=== PATIENT | female | born 1940 | race Caucasian/White ===

== ENCOUNTER 2018-08-27 11:39 | Observation (INO) ==
[2018-08-27 12:17] LABS: Basophils % 0.7 %; Eosinophils # 0.2 K/mcL (0.0-0.6); Eosinophils % 3.3 %; Hematocrit 34.9 % (35.3-44.9); Hemoglobin 11.2 g/dL (11.5-15.4); Immature Granulocytes % 0.2 % (0-4); Lymphocytes # 1.8 K/mcL (0.6-4.6); Lymphocytes % 30.1 %; Mean Corpuscular HGB Conc 32.1 g/dL (31.6-35.5); Mean Corpuscular Hemoglobin 31.9 pg (28.0-33.3); Mean Corpuscular Volume 99.4 fL (83.0-100.0); Mean Platelet Volume 9.7 fL (9.4-12.4); Monocytes # 0.8 K/mcL (0.0-1.3); Monocytes % 12.6 %; Neutrophils # 3.2 K/mcL (1.6-8.9); Platelet Count 177 K/mcL (140-400); Red Blood Count 3.51 M/mcL (3.82-4.97); Red Cell Distribution Width 16.7 % (11.5-14.5); Segmented Neutrophils % 53.1 %
--- NOTE | 2018-08-27 12:21 | Emergency Department Note ---
Disposition Clinical Impression: Chest pain Qualifiers: Chest pain type: unspecified Qualified Code(s): R07.9 - Chest pain, unspecified Dyspnea Qualifiers: Dyspnea type: unspecified Qualified Code(s): R06.00 - Dyspnea, unspecified Atrial fibrillation Qualifiers: Atrial fibrillation type: chronic Qualified Code(s): I48.2 - Chronic atrial fi brillation Disposition: Admitted As Inpatient Forms: ED Satisfaction Letter Time of Disposition: 13:15 Chest Pain HPI - General Stated Complaint: Chest Pain Time Seen by Provider: 08/27/18 11:41 Source: patient Mode of arrival: ambulatory Limitations: no limitations Vital Signs Reviewed: Yes Nursing Notes Reviewed: Yes - History of Present Illness HPI Narrative: 77 yo female with past medical history of atrial fibrillation on Coumadin presents to the emergency department with worsening chest pressure and shortness of breath over the past 3 weeks. Patient states that chest pressure and shortness of breath occur when she is walking and working but are not present at rest. She had a heart catheterization many years ago which was clean and did not require stenting. 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 She does feel slightly nauseous at this time but has not thrown up and she thinks the nausea is secondary to her being hungry. She denies fevers, cough, abdominal pain. She saw her regular doctor today who told her to come to the emergency department for further evaluation of her worsening chest pressure. She currently denies having any chest pressure or shortness of breath. She says the pressure radiates into her back when she does have it. Severity scale (1-10): 0 - Related Data Home Medications Medication Instructions Recorded Confirmed Cyanocobalamin (Vitamin B-12) 1,000 mcg PO DAILY 11/27/15 02/13/17 [Vitamin B12] Potassium Chloride [K-Tab ER] 20 meq PO DAILY 11/27/15 02/13/17 Vit D3/Folic Acid/B2/B6/B12 1 tab PO DAILY 11/27/15 02/13/17 [Folgard Tablet] Warfarin [Coumadin] 5 mg PO 1800 11/27/15 02/13/17 Allopurinol [Zyloprim] 300 mg PO DAILY 02/07/16 02/13/17 Bumetanide [Bumex] 1 mg PO DAILY 02/07/16 02/13/17 Carvedilol [Coreg] 6.25 mg PO DAILY 02/07/16 02/13/17 Previous Rx's Medication Instructions Recorded Hydrocodone/Acetaminophen [[place] 1 tab PO Q6H #16 tab 11/27/15 5-325 Tablet] Acetaminophen [Tylenol] 500 mg PO Q6HR PRN #20 tablet 02/13/17 Allergies Allergy/AdvReac Type Severity Reaction Status Date / Time No Known Allergies Allergy Verified 02/13/17 14:58 All systems ED: reviewed and negative except as stated. Review of Systems: As Per HPI Constitutional: Denies: fever, weakness Cardiovascular: Reports: chest pain, dyspnea on exertion. Denies: palpitations, orthopnea, edema, syncope Respiratory: Denies: cough, dyspnea, wheezes Gastrointestinal: Reports: nausea. Denies: abdominal pain, vomiting Musculoskeletal: Reports: back pain. Denies: neck pain Integumentary: Denies: rash Neurological: Denies: headache Endocrine: Denies: fatigue Chest Pain PMH - Past Medical History Medical history: Reports: atrial fibrillation, cardiomyopathy Surgical history: Reports: hysterectomy, pacemaker/AICD Psychiatric history: Reports: no psych history BENEFITS DIRECTOR history: Reports: no BENEFITS DIRECTOR history - Social History Smoking Status: Never smoker Alcohol use: Reports: none Drug use: Reports: none Physical Exam - General Limitations: no limitations General appearance: alert, in no apparent distress - Head Head exam: atraumatic, normocephalic - Eye Eye exam: Present: normal appearance, EOMI - ENT ENT exam: mucous membranes dry - Neck Neck exam: Present: normal inspection. Absent: tenderness - Chest Chest inspection: Present: normal inspection. Absent: tenderness, rash - Respiratory Respiratory exam: Present: normal lung sounds bilaterally. Absent: wheezes - Cardiovascular Cardiovascular exam: Present: regular rate, normal rhythm - Abdominal Exam Abdominal exam: Present: soft, Non-Tender. Absent: distention, guarding, rebound, rigidity - Extremities Exam Extremities exam: Present: pedal edema (1+ pedal edema bilaterally) - Neurological Exam Neurological exam: Present: alert, oriented X3 - Psychiatric Psychiatric exam: Present: normal affect, normal mood - Skin Skin exam: Present: warm, dry, intact Course Vital Signs Temperature 98.2 F 08/27/18 11:46 Pulse Rate 62 08/27/18 11:46 Respiratory Rate 18 08/27/18 11:46 Blood Pressure 167/77 08/27/18 11:46 O2 Sat by Pulse Oximetry 99 08/27/18 11:46 Temperature 98.2 F 08/27/18 11:46 Pulse Rate 62 08/27/18 11:46 Respiratory Rate 18 08/27/18 11:46 Blood Pressure 167/77 08/27/18 11:46 O2 Sat by Pulse Oximetry 99 08/27/18 11:46 Oxygen Delivery Oxygen Delivery Room Air Chest Pain - MDM Narrative Medical decision making narrative: Patient presents with 3 weeks of worsening chest pressure and dyspnea with a ctivity concerning for worsening coronary artery disease versus new-onset heart failure. We will pursue a cardiac workup with EKG, chest x-ray, basic lab work and BNP. Patient is not actively expressing any chest pain therefore she will not be given nitroglycerin. 1305 - patient's EKG shows a paced rhythm. Her chest x-ray did not demonstrate any acute cardiopulmonary process. Troponin was negative but BNP was elevated at 303. Heart score is 4. Patient does not have a history of heart failure and her symptoms are concerning for new onset heart failure. Plan will be to admit to the hospitalist for further cardiac workup on this patient. Patient is agreeable with this plan of care. Patient has been accepted to the hospitalist at this time. - Medical Records Medical records reviewed: Yes I reviewed the patient's medical records. - Lab Data Lab results reviewed: Yes I reviewed the patient's lab results. Result diagrams: 08/27/18 11:55 08/27/18 11:55 Lab Results 08/27/18 08/27/18 08/27/18 Range/Units 11:55 11:55 11:55 WBC 6.0 (4.3-11.1) K/mcL RBC 3.51 L (3.82-4.97) M/mcL Hgb 11.2 L (11.5-15.4) g/dL Hct 34.9 L (35.3-44.9) % MCV 99.4 (83.0-100.0) fL MCH 31.9 (28.0-33.3) pg MCHC 32.1 (31.6-35.5) g/dL RDW 16.7 H (11.5-14.5) % Plt Count 177 (140-400) K/mcL MPV 9.7 (9.4-12.4) fL Immature Gran % 0.2 (0-4) % Seg Neutrophils % 53.1 % Lymphocytes % 30.1 % Monocytes % 12.6 % Eosinophils % 3.3 % Basophils % 0.7 % Neutrophils # 3.2 (1.6-8.9) K/mcL Lymphocytes # 1.8 (0.6-4.6) K/mcL Monocytes # 0.8 (0.0-1.3) K/mcL Eosinophils # 0.2 (0.0-0.6) K/mcL Basophils # 0.0 (0.0-0.2) K/mcL PT 31.3 H (9.4-12.1) Seconds INR 2.8 Sodium 139 (136-145) mEq/L Potassium 3.9 (3.5-5.1) mEq/L Chloride 104 (98-107) mEq/L Carbon Dioxide 28 (23-29) mEq/L BUN 26 H (8-23) mg/dL Creatinine 0.90 (0.60-1.20) mg/dL Est GFR ( Amer) > 60 (> 60) Est GFR (Non-Af Amer) > 60 (> 60) BUN/Creatinine Ratio 29 H (6-26) Glucose 111 H (70-105) mg/dL Calculated Osmolality 293 (280-300) Calcium 9.4 (8.6-10.3) mg/dL Magnesium 2.2 (1.6-2.6) mg/dL Troponin I < 0.03 (< 0.04) ng/mL B-Natriuretic Peptide (Less than 100) pg/mL 08/27/18 Range/Units 11:55 WBC (4.3-11.1) K/mcL RBC (3.82-4.97) M/mcL Hgb (11.5-15.4) g/dL Hct (35.3-44.9) % MCV (83.0-100.0) fL MCH (28.0-33.3) pg MCHC (31.6-35.5) g/dL RDW (11.5-14.5) % Plt Count (140-400) K/mcL MPV (9.4-12.4) fL Immature Gran % (0-4) % Seg Neutrophils % % Lymphocytes % % Monocytes % % Eosinophils % % Basophils % % Neutrophils # (1.6-8.9) K/mcL Lymphocytes # (0.6-4.6) K/mcL Monocytes # (0.0-1.3) K/mcL Eosinophils # (0.0-0.6) K/mcL Basophils # (0.0-0.2) K/mcL PT (9.4-12.1) Seconds INR Sodium (136-145) mEq/L Potassium (3.5-5.1) mEq/L Chloride (98-107) mEq/L Carbon Dioxide (23-29) mEq/L BUN (8-23) mg/dL Creatinine (0.60-1.20) mg/dL Est GFR ( Amer) (> 60) Est GFR (Non-Af Amer) (> 60) BUN/Creatinine Ratio (6-26) Glucose (70-105) mg/dL Calculated Osmolality (280-300) Calcium (8.6-10.3) mg/dL Magnesium (1.6-2.6) mg/dL Troponin I (< 0.04) ng/mL B-Natriuretic Peptide 303 H (Less than 100) pg/mL - Radiology Data Radiology results reviewed: Yes I reviewed the patient's radiology results. - EKG Data EKG attestation: Yes I reviewed and interpreted this EKG. EKG results narrative: EKG obtained at 11:48 on 08/27/2018 Heart rate 50 bpm, QRS duration 186, QTC 54, QTC 504 Paced rhythm without any ST segment elevations or depressions meeting sgarbossa criteria. Old EKG dated 02/07/2016 shows a sinus rhythm with first-degree AV block Heart Score - Score History: Moderately Suspicious EKG: Non Specific repolarisation Disturbance Age: Greater than 65 Risk Factors: No risk factors known Troponin: Less than normal limit HEART Score Total: 4
--- NOTE | 2018-08-27 12:23 | Emergency Department Note ---
Disposition Clinical Impression: Chest pain Qualifiers: Chest pain type: unspecified Qualified Code(s): R07.9 - Chest pain, unspecified Dyspnea Qualifiers: Dyspnea type: unspecified Qualified Code(s): R06.00 - Dyspnea, unspecified Atrial fibrillation Qualifiers: Atrial fibrillation type: chronic Qualified Code(s): I48.2 - Chronic atrial fi brillation Disposition: Admitted As Inpatient Condition: Fair Time of Disposition: 13:26 General Adult HPI - General Chief complaint: ED Chest Pain Stated complaint: Chest Pain Time Seen by Provider: 08/27/18 11:41 Source: patient Limitations: no limitations - History of Present Illness Pain Scale: 0 - Related Data Home Medications Medication Instructions Recorded Confirmed Cyanocobalamin (Vitamin B-12) 1,000 mcg PO DAILY 11/27/15 02/13/17 [Vitamin B12] Potassium Chloride [K-Tab ER] 20 meq PO DAILY 11/27/15 02/13/17 Vit D3/Folic Acid/B2/B6/B12 1 tab PO DAILY 11/27/15 02/13/17 [Folgard Tablet] Warfarin [Coumadin] 5 mg PO 1800 11/27/15 02/13/17 Allopurinol [Zyloprim] 300 mg PO DAILY 02/07/16 02/13/17 Bumetanide [Bumex] 1 mg PO DAILY 02/07/16 02/13/17 Carvedilol [Coreg] 6.25 mg PO DAILY 02/07/16 02/13/17 Previous Rx's Medication Instructions Recorded Hydrocodone/Acetaminophen [[place] 1 tab PO Q6H #16 tab 11/27/15 5-325 Tablet] Acetaminophen [Tylenol] 500 mg PO Q6HR PRN #20 tablet 02/13/17 Allergies Allergy/AdvReac Type Severity Reaction Status Date / Time No Known Allergies Allergy Verified 02/13/17 14:58 Past Medical History - Past Medical History Medical history: Reports: atrial fibrillation, cardiomyopathy Surgical history: Reports: hysterectomy, pacemaker/AICD Psychiatric history: Reports: no psych history 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 - Social History Smoking Status: Never smoker Smokeless Tobacco Status: No Alcohol use: Reports: none Drug use: Reports: none Physical Exam - General Limitations: no limitations General appearance: alert, in no apparent distress Course Vital Signs Temperature 98.2 F 08/27/18 11:46 Pulse Rate 62 08/27/18 11:46 Respiratory Rate 18 08/27/18 11:46 Blood Pressure 167/77 08/27/18 11:46 O2 Sat by Pulse Oximetry 99 08/27/18 11:46 Temperature 98.2 F 08/27/18 11:46 Pulse Rate 62 08/27/18 11:46 Respiratory Rate 18 08/27/18 11:46 Blood Pressure 167/77 08/27/18 11:46 O2 Sat by Pulse Oximetry 99 08/27/18 11:46 Oxygen Delivery Oxygen Delivery Room Air Medical Decision Making - Lab Data Result diagrams: 08/27/18 11:55 08/27/18 11:55 Lab Results 08/27/18 08/27/18 08/27/18 Range/Units 11:55 11:55 11:55 WBC 6.0 (4.3-11.1) K/mcL RBC 3.51 L (3.82-4.97) M/mcL Hgb 11.2 L (11.5-15.4) g/dL Hct 34.9 L (35.3-44.9) % MCV 99.4 (83.0-100.0) fL MCH 31.9 (28.0-33.3) pg MCHC 32.1 (31.6-35.5) g/dL RDW 16.7 H (11.5-14.5) % Plt Count 177 (140-400) K/mcL MPV 9.7 (9.4-12.4) fL Immature Gran % 0.2 (0-4) % Seg Neutrophils % 53.1 % Lymphocytes % 30.1 % Monocytes % 12.6 % Eosinophils % 3.3 % Basophils % 0.7 % Neutrophils # 3.2 (1.6-8.9) K/mcL Lymphocytes # 1.8 (0.6-4.6) K/mcL Monocytes # 0.8 (0.0-1.3) K/mcL Eosinophils # 0.2 (0.0-0.6) K/mcL Basophils # 0.0 (0.0-0.2) K/mcL PT 31.3 H (9.4-12.1) Seconds INR 2.8 Sodium 139 (136-145) mEq/L Potassium 3.9 (3.5-5.1) mEq/L Chloride 104 (98-107) mEq/L Carbon Dioxide 28 (23-29) mEq/L BUN 26 H (8-23) mg/dL Creatinine 0.90 (0.60-1.20) mg/dL Est GFR ( Amer) > 60 (> 60) Est GFR (Non-Af Amer) > 60 (> 60) BUN/Creatinine Ratio 29 H (6-26) Glucose 111 H (70-105) mg/dL Calculated Osmolality 293 (280-300) Calcium 9.4 (8.6-10.3) mg/dL Magnesium 2.2 (1.6-2.6) mg/dL Troponin I < 0.03 (< 0.04) ng/mL B-Natriuretic Peptide (Less than 100) pg/mL 08/27/18 Range/Units 11:55 WBC (4.3-11.1) K/mcL RBC (3.82-4.97) M/mcL Hgb (11.5-15.4) g/dL Hct (35.3-44.9) % MCV (83.0-100.0) fL MCH (28.0-33.3) pg MCHC (31.6-35.5) g/dL RDW (11.5-14.5) % Plt Count (140-400) K/mcL MPV (9.4-12.4) fL Immature Gran % (0-4) % Seg Neutrophils % % Lymphocytes % % Monocytes % % Eosinophils % % Basophils % % Neutrophils # (1.6-8.9) K/mcL Lymphocytes # (0.6-4.6) K/mcL Monocytes # (0.0-1.3) K/mcL Eosinophils # (0.0-0.6) K/mcL Basophils # (0.0-0.2) K/mcL PT (9.4-12.1) Seconds INR Sodium (136-145) mEq/L Potassium (3.5-5.1) mEq/L Chloride (98-107) mEq/L Carbon Dioxide (23-29) mEq/L BUN (8-23) mg/dL Creatinine (0.60-1.20) mg/dL Est GFR ( Amer) (> 60) Est GFR (Non-Af Amer) (> 60) BUN/Creatinine Ratio (6-26) Glucose (70-105) mg/dL Calculated Osmolality (280-300) Calcium (8.6-10.3) mg/dL Magnesium (1.6-2.6) mg/dL Troponin I (< 0.04) ng/mL B-Natriuretic Peptide 303 H (Less than 100) pg/mL Attestation Statement - Attestation Attestation: I examined this patient and my medical decision-making was reviewed with the Resident Physician. I agree with the documented findings, disposition and treatment plan as described except to the extent set forth below. Patient presents to the ED with a chief complaint of her chest not feeling right. Onset 3 weeks ago. Dyspnea on exertion. Saw her PCP today who recommended her to come to the ED. Patient does have a history of A. fib and has a pacemaker. No known history of CHF. On exam heart regular. Lungs clear. She does have 2-3+ pitting edema in her lower extremities. Plan. Cardiac workup. EKG reviewed with the resident. Paced rhythm. Patient with by mouth edema and elevation in her BNP. Admitted for further cardiac workup. Chest X-Ray 08/27/18 11:43 IMPRESSION: No acute process. Stable cardiomegaly. D/ / Toro Lora MD / Toro Lora MD Interpreting Provider: Toro Lora MD
[2018-08-27 12:25] LABS: INR 2.8; Prothrombin Time 31.3 Seconds (9.4-12.1)
[2018-08-27 12:37] LABS: BUN/Creatinine Ratio 29 (6-26); Blood Urea Nitrogen 26 mg/dL (8-23); Calcium 9.4 mg/dL (8.6-10.3); Carbon Dioxide 28 mEq/L (23-29); Chloride 104 mEq/L (98-107); Glucose 111 mg/dL (70-105); Magnesium 2.2 mg/dL (1.6-2.6); Osmolality,Calculated 293 (280-300); Potassium 3.9 mEq/L (3.5-5.1); Sodium 139 mEq/L (136-145); Troponin I < 0.03 ng/mL (< 0.04); eGFR For African Americans > 60 (> 60); eGFR For Non-African Americans > 60 (> 60)
[2018-08-27] MEDS ORDERED: Furosemide 40 MG/4 ML VIAL IVP ONE (13:28)
[2018-08-27] MEDS ORDERED: Naloxone 0.4 MG/ML INJ IVP PRN ×2 (13:42→13:44)
[2018-08-27] MEDS ORDERED: Ondansetron 4 MG/2 ML VIAL IVP PRN (13:44)
[2018-08-27] MEDS ORDERED: Aspirin 81 MG TAB.CHEW PO ONE (13:56)
--- NOTE | 2018-08-27 14:00 | Electrocardiograph Report ---
[address] [address] Test Date: 2018-08-27 Pat Name: Olga Chaparro Department: EXAM24 Room: 3B52 Gender: F Bank Runner: : 1940 Requested By: Lisa Lebron Order Number: [id number] Reading MD: Delta Stiles Measurements Intervals [place] Rate: 60 P: MA: QRS: -83 QRSD: 186 T: 101 QT: 504 QTc: 504 Interpretive Statements VENTRICULAR PACED RHYTHM Electronically Signed On 08-27-2018 13:59:06 EDT by Delta Stiles
--- NOTE | 2018-08-27 14:22 | Internal Med History&Physical ---
Date of Encounter: 08/27/18 Time of Encounter: 13:52 Internal Medicine - H&P: HPI Chief complaint: CP History of present illness: (Yesterday 77 years old white female with past medical history of atrial fibrillation on chronic anticoagulation most vomiting who presented to the ER with progressive worsening of midsternal chest pain associated with shortness of breath over the last 3 weeks. The pain is described as pressure-like in character with no radiation and it exacerbated by exertion and was no alleviating factor. The patient reported that she has history of heart catheterization that was negative. The patient denying palpitation orthopnea, paroxysmal nocturnal dyspnea, orthopnea, progressive worsening of lower extremity edema. The ER was concern that patient might have new onset heart failure, her BNP is not highly elevated and her chest x-ray did not demonstrate any acute abnormalities. The patient EKGs revealed based rhythm and her cardiac enzymes first set was was no significant abnormalities. The patient was treated with 1 dose of Lasix and was admitted for further evaluation and management. Past Med Surg Social Fam HX - Past Medical History Medical history: atrial fibrillation, cardiomyopathy Additional medical history: anemia Psychiatric history: no psych history - Past Surgical History Surgical History: hysterectomy, pacemaker/AICD Additional surgical history: thyroid nodules, pacemaker - Social History Smoking Status: Never smoker Smokeless Tobacco Status: No Alcohol use: none Drug use: none - Family History Mother Living Status: Age at : 96 Cause of : unknown Hx Family Cardiac Disorders: Yes Internal Medicine - H&P: Meds Warfarin [Coumadin] 7.5 mg PO 1800 11/27/15 [History] Allopurinol [Zyloprim] 300 mg PO DAILY 02/07/16 [History] Bumetanide [Bumex] 1 mg PO DAILY 02/07/16 [History] Ascorbic Acid [Vitamin C] 500 mg PO DAILY 08/28/18 [History] Carvedilol 3.125 mg PO BID 08/28/18 [History] Cholecalciferol (Vitamin D3) [Vitamin D3] 1,000 units PO DAILY 08/28/18 [History] Ferrous Sulfate [Iron] 325 mg PO DAILY 08/28/18 [History] Multivit-Min/Iron/Folic/Lutein [Multivitamin Women 50 Plus Tab] 1 tab PO DAILY 08/28/18 [History] Potassium 99 mg PO BID 08/28/18 [History] Ubidecarenone/Vit E Acetate [Co Q-10 100 mg Softgel] 100 mg PO DAILY 08/28/18 [History] Allergy/AdvReac Type Severity Reaction Status Date / Time No Known Allergies Allergy Verified 08/28/18 18:47 All Systems PM: A 10-system review of systems was performed and is negative for pertinent findings except as documented above in the HPI. - Constitutional Vitals: Temp Pulse Resp BP Pulse Ox 98.2 F 62 16 134/71 99 08/27/18 11:46 08/27/18 11:46 08/27/18 13:39 08/27/18 13:39 08/27/18 11:46 General appearance: Present: A&O X 3 Exam: ` - Head Head exam: Present: atraumatic, normocephalic - Neck Neck exam general surgery: Present: supple, trachea midline. Absent: lymphadenopathy - Respiratory Respiratory exam: Present: CTAB. Absent: accessory muscle use, rales, rhonchi, wheezes - Cardiovascular Cardiovascular exam: Present: RRR, +S1, +S2. Absent: diastolic murmur, gallop, rubs, systolic murmur - GI/Abdominal GI/Abdominal exam: Present: normal bowel sounds, soft, no peritoneal signs. Absent: distended, tenderness - Extremities Exam Extremities exam: Present: warm, radial pulses palpable and symmetrical. Absent: calf tenderness, cyanotic, pedal edema Internal Med - H&P Results - Labs CBC & Chem 7: 08/29/18 00:24 08/29/18 00:24 Labs: Short CBC 08/27/18 Range/Units 11:55 WBC 6.0 (4.3-11.1) K/mcL Hgb 11.2 L (11.5-15.4) g/dL Hct 34.9 L (35.3-44.9) % Plt Count 177 (140-400) K/mcL Neutrophils # 3.2 (1.6-8.9) K/mcL BMP 08/27/18 11:55 Sodium 139 Potassium 3.9 Chloride 104 Carbon Dioxide 28 BUN 26 H Creatinine 0.90 Glucose 111 H Calcium 9.4 Cardiac Enzymes 08/27/18 Range/Units 11:55 Troponin I < 0.03 (< 0.04) ng/mL - Impressions ITS Impressions Chest X-Ray 08/27/18 11:43 IMPRESSION: No acute process. Stable cardiomegaly. D/ / Toro Lora MD / Toro Lora MD Interpreting Provider: Toro Lora MD - Assessment and Plan (1) Chest pain Current Visit: Yes Status: Suspected Assessment and plan: ASSESSMENT: - Chest pain R/o CAD - The patient reported that she has history of heart catheterization that was negative. PLAN: - cardiac enzymes x 2 q 8 hr - EKG now and in AM - ASA - O2 by NC to keep SpO2 greater than 92% - UA - CBCD, BMP in AM - Fasting lipids - Tylenol 650 mg PO q 4-6 hr PRN headache - 2D Echo Qualifiers: Chest pain type: chest pain due to myocardial ischemia Ischemic chest pain type: stable angina pectoris Qualified Code(s): I20.8 - Other forms of angina pectoris (2) Afib Current Visit: Yes Status: Chronic Assessment and plan: the patient rate is controlled, will continue anticoagulation with Coumadin Qualifiers: Atrial fibrillation type: chronic Qualified Code(s): I48.2 - Chronic atrial fibrillation (3) CHF (congestive heart failure) Current Visit: Yes Status: Acute Assessment and plan: There is no clinical evidence of acute exacerbation both an x-ray and physical exam, we will continue home diuretic regimen Qualifiers: Heart failure type: diastolic Heart failure chronicity: chronic Qualified Code(s): I50.32 - Chronic diastolic (congestive) heart failure (4) Anemia Current Visit: Yes Status: Acute Assessment and plan: Macrocytic anemia, will obtain vit B12 level and folic acid level Qualifiers: Anemia type: iron deficiency Iron deficiency anemia type: other iron deficiency Qualified Code(s): D50.8 - Other iron deficiency anemias (5) Morbid obesity with BMI of 45.0-49.9, adult Current Visit: Yes Status: Chronic - Time Spent With Patient Total time spent is greater than 50% in coordination of care (as documented) at patient's floor/unit and/or counseling patient:
[2018-08-27 22:49] LABS: INR 2.9; Prothrombin Time 32.9 Seconds (9.4-12.1)
[2018-08-28 02:24] LABS: Basophils % 0.6 %; Eosinophils # 0.2 K/mcL (0.0-0.6); Eosinophils % 3.9 %; Hematocrit 32.7 % (35.3-44.9); Hemoglobin 10.4 g/dL (11.5-15.4); Immature Granulocytes % 0.2 % (0-4); Lymphocytes # 1.9 K/mcL (0.6-4.6); Lymphocytes % 34.6 %; Mean Corpuscular HGB Conc 31.8 g/dL (31.6-35.5); Mean Corpuscular Hemoglobin 32.3 pg (28.0-33.3); Mean Corpuscular Volume 101.6 fL (83.0-100.0); Mean Platelet Volume 9.8 fL (9.4-12.4); Monocytes # 0.7 K/mcL (0.0-1.3); Monocytes % 12.5 %; Neutrophils # 2.6 K/mcL (1.6-8.9); Platelet Count 156 K/mcL (140-400); Red Blood Count 3.22 M/mcL (3.82-4.97); Red Cell Distribution Width 16.6 % (11.5-14.5); Segmented Neutrophils % 48.2 %; White Blood Count 5.4 K/mcL (4.3-11.1)
[2018-08-28 02:36] LABS: INR 2.9; Prothrombin Time 33.5 Seconds (9.4-12.1)
[2018-08-28 02:39] LABS: Activated Partial Thrombo Time 47.7 Seconds (26.0-36.0)
[2018-08-28 02:45] LABS: Alanine Aminotransferase 12 Units/L (7-52); Albumin 3.6 g/dL (3.5-5.7); Albumin/Globulin Ratio 0.9 (1.1-2.2); Alkaline Phosphatase 53 Units/L (34-104); Aspartate Amino Transferase 21 Units/L (13-39); BUN/Creatinine Ratio 28 (6-26); Bilirubin,Total 0.6 mg/dL (0.3-1.0); Blood Urea Nitrogen 25 mg/dL (8-23); Calcium 9.3 mg/dL (8.6-10.3); Carbon Dioxide 29 mEq/L (23-29); Chloride 103 mEq/L (98-107); Chol/HDL Ratio 5.4 (0-4.9); Cholesterol 163 mg/dL (< 200); Globulin 3.9 g/dL (2.4-3.5); Glucose 89 mg/dL (70-105); HDL Cholesterol 30 mg/dL (40-59); LDL Cholesterol,Calculated 111 mg/dL (0-99); Osmolality,Calculated 294 (280-300); Phosphorous 3.8 mg/dL (2.7-4.5); Potassium 3.6 mEq/L (3.5-5.1); Sodium 140 mEq/L (136-145); Total Protein 7.5 g/dL (6.4-8.9); Triglycerides 112 mg/dL (< 150); eGFR For African Americans > 60 (> 60); eGFR For Non-African Americans > 60 (> 60)
[2018-08-28] MEDS ORDERED: Regadenoson 0.4 MG/5 ML SYRINGE IVP ONE (07:34)
[2018-08-28] MEDS: Bumetanide 1 MG TABLET PO SCH (09:42)
[2018-08-28] MEDS: Acetaminophen 325 MG TABLET PO PRN ×2 (09:42→20:49)
[2018-08-28] MEDS: FOLIC ACID PO SCH (09:43)
[2018-08-28] MEDS: B12 PO SCH (09:43)
[2018-08-28] MEDS: Aspirin 81 MG TAB.CHEW PO SCH (09:43)
[2018-08-28] MEDS: Cyanocobalamin (B-12) 1,000 MCG TABLET PO SCH (09:43)
[2018-08-28] MEDS: B6 PO SCH (09:43)
[2018-08-28] MEDS: VIT D3 PO SCH (09:43)
[2018-08-28] MEDS: B2 PO SCH (09:43)
[2018-08-28] MEDS ORDERED: *HR* Warfarin 7.5 MG TABLET PO ONE (18:00)
[2018-08-28] MEDS ORDERED: Warfarin perPT PO PRN (18:00)
--- NOTE | 2018-08-28 18:10 | Internal Med Progress Note ---
Hospitalist Progress Note - Encounter Date of Encounter: 08/28/18 Time of Encounter: 12:30 - Subjective Interval History: Ms Chaparro is currently in observation for chest pain. Her stress test is 2 day. She remains moderate risk. Ms Chaparro is feeling OK. No further chest discomfort. Part 2 of stress tomorrow. Wants her iron pill. - Exam Vitals: Temp Pulse Resp BP Pulse Ox 98.0 F 60 15 131/73 92 08/28/18 15:25 08/28/18 15:25 08/28/18 15:25 08/28/18 15:25 08/28/18 15:25 Exam: Gen: Alert. Comfortable Head: Normocephalic EENT: Mucus membranes dry Neck: Supple Heart irreg and not tachy Lungs clear bilaterally Abd soft and nontender No edema Neuro non focal Skin no rash - Assessment and Plan (1) Afib Current Visit: Yes Status: Chronic Assessment and Plan: Rate controlled at this time. Continue coumadin. (2) Chest pain Current Visit: Yes Status: Suspected Assessment and Plan: Pt is having stress test - 2 part. Further evaluation based on results. (3) CHF (congestive heart failure) Current Visit: Yes Status: Acute Assessment and Plan: Not in acute exacerbation. (4) Anemia Current Visit: Yes Status: Acute Assessment and Plan: Continue supplement. (5) Morbid obesity with BMI of 45.0-49.9, adult Current Visit: Yes Status: Chronic Assessment and Plan: Chronic issue - Time Spent with Patient Total time spent is greater than 50% in coordination of care (as documented) at patient's floor/unit and/or counseling patient: Internal Medicine: Result - Labs CBC & Chem 7: 08/28/18 01:14 08/28/18 01:14 Labs: Short CBC 08/28/18 Range/Units 01:14 WBC 5.4 (4.3-11.1) K/mcL Hgb 10.4 L (11.5-15.4) g/dL Hct 32.7 L (35.3-44.9) % Plt Count 156 (140-400) K/mcL Neutrophils # 2.6 (1.6-8.9) K/mcL BMP 08/28/18 01:14 Sodium 140 Potassium 3.6 Chloride 103 Carbon Dioxide 29 BUN 25 H Creatinine 0.90 Glucose 89 Calcium 9.3 Cardiac Enzymes 08/27/18 08/28/18 Range/Units 19:49 01:14 Troponin I < 0.03 0.03 (< 0.04) ng/mL Liver Function 08/28/18 Range/Units 01:14 Total Bilirubin 0.6 (0.3-1.0) mg/dL AST 21 (13-39) Units/L ALT 12 (7-52) Units/L Alkaline Phosphatase 53 (34-104) Units/L Albumin 3.6 (3.5-5.7) g/dL - ABG Interpretation ABG results: PT/INR, D-dimer PT 33.5 Seconds (9.4-12.1) H 08/28/18 01:14 - Impressions Impressions Echocardiogram 08/27/18 13:40 Impressions: LVEF 60-65%. Normal LV chamber size and function. Mild concentric left ventricular hypertrophy. Mild left ventricular diastolic dysfunction. Atypical septal motion consistent with paced rhythm. Right ventricle was not well evaluated. In the subcostal view, function is grossly normal. Mild tricuspid regurgitation. Mild pulmonary hypertension. The IVC is dilated. < 50% respiratory change. A device lead was visualized in the right atrium and right ventricle. Left Ventricular Wall Motion: Rest Echo Findings All wall segments showed normal motion. Findings: Study Quality * Technically sub-optimal due to poor echocardiographic windows. ECG Findings * Paced rhythm. Left Ventricle * LVEF 60-65%. * Normal LV chamber size and function. * Mild concentric left ventricular hypertrophy. * Mild left ventricular diastolic dysfunction. * Atypical septal motion consistent with paced rhythm. Right Ventricle * Right ventricle was not well evaluated. In the subcostal view, function is grossly normal. Left Atrium * Moderately dilated left atrium. Right Atrium * Right atrium is not well visualized. Interatrial Septum * Interatrial septum not well evaluated. Aortic Valve * Aortic valve not well visualized. * No aortic stenosis. * No aortic regurgitation. Mitral Valve * Normal mitral valve structure and function. * No mitral regurgitation. * No mitral stenosis. Tricuspid Valve * Normal tricuspid valve structure. * Mild tricuspid regurgitation. * Mild pulmonary hypertension. * Estimated RA pressure is 15-20 mmHg. * Estimated RVSP is 42-47 mmHg. Pulmonic Valve * Pulmonic valve not well visualized. Aorta * Normally sized aortic root. Pericardium * The pericardium appears normal. IVC * The IVC is dilated. * < 50% respiratory change. Device lead * A device lead was visualized in the right atrium and right ventricle. Pulmonary Artery * Pulmonary artery not well visualized. Consult Discharge Plan - Plan Referrals: Apollo Murphy, DO [Primary Care Provider] - (1) Afib Qualifiers: Atrial fibrillation type: chronic Qualified Code(s): I48.2 - Chronic atrial fibrillation (2) Chest pain Qualifiers: Chest pain type: chest pain due to myocardial ischemia Ischemic chest pain type: stable angina pectoris Qualified Code(s): I20.8 - Other forms of angina pectoris (3) CHF (congestive heart failure) Qualifiers: Heart failure type: diastolic Heart failure chronicity: chronic Qualified Code(s): I50.32 - Chronic diastolic (congestive) heart failure (4) Anemia Qualifiers: Anemia type: iron deficiency Iron deficiency anemia type: other iron deficiency Qualified Code(s): D50.8 - Other iron deficiency anemias
[2018-08-29 00:57] LABS: Hematocrit 32.3 % (35.3-44.9); Hemoglobin 10.1 g/dL (11.5-15.4); Mean Corpuscular HGB Conc 31.3 g/dL (31.6-35.5); Mean Corpuscular Hemoglobin 32.2 pg (28.0-33.3); Mean Corpuscular Volume 102.9 fL (83.0-100.0); Mean Platelet Volume 9.4 fL (9.4-12.4); Platelet Count 151 K/mcL (140-400); Red Blood Count 3.14 M/mcL (3.82-4.97); Red Cell Distribution Width 16.8 % (11.5-14.5); White Blood Count 5.4 K/mcL (4.3-11.1)
[2018-08-29 01:12] LABS: BUN/Creatinine Ratio 34 (6-26); Blood Urea Nitrogen 34 mg/dL (8-23); Carbon Dioxide 28 mEq/L (23-29); Chloride 105 mEq/L (98-107); Glucose 105 mg/dL (70-105); Magnesium 1.9 mg/dL (1.6-2.6); Osmolality,Calculated 292 (280-300); Potassium 3.7 mEq/L (3.5-5.1); Sodium 137 mEq/L (136-145); eGFR For African Americans > 60 (> 60); eGFR For Non-African Americans 53 (> 60)
[2018-08-29 01:22] LABS: INR 2.4; Prothrombin Time 27.8 Seconds (9.4-12.1)
[2018-08-29] MEDS ORDERED: Iron Polysaccharide Complex 150 MG CAPSULE PO SCH (09:00)
[2018-08-29] MEDS: Aspirin 81 MG TAB.CHEW PO SCH (10:02)
[2018-08-29] MEDS: Bumetanide 1 MG TABLET PO SCH (10:03)
[2018-08-29] MEDS: Cyanocobalamin (B-12) 1,000 MCG TABLET PO SCH (10:05)
[2018-08-29] MEDS: VIT D3 PO SCH (10:10)
[2018-08-29] MEDS: B2 PO SCH (10:10)
[2018-08-29] MEDS: FOLIC ACID PO SCH (10:10)
[2018-08-29] MEDS: B6 PO SCH (10:10)
[2018-08-29] MEDS: B12 PO SCH (10:10)
[2018-08-29 11:03] VITALS: BP 114/73
--- NOTE | 2018-08-29 11:32 | Discharge Summary ---
- NOTES TO OUTPATIENT PROVIDER Notes to Outpatient Provider: Pt presented with L shoulder pain and associated chest pain. Stress test and echo negative. Symptoms have resolved. Orders not resulted at time of discharge: Pending orders 08/28/18 06:57 NM kaushik perf SPECT multi [NM] Routine 08/30/18 04:00 PT/INR [Prothrombin Time INR] [COAG] AM 0400 08/31/18 04:00 PT/INR [Prothrombin Time INR] [COAG] AM 0400 Date of Encounter: 08/29/18 Time of Encounter: 11:30 - Discharge Diagnosis (1) Afib Priority: Secondary Status: Chronic Qualifiers: Atrial fibrillation type: chronic Qualified Code(s): I48.2 - Chronic atrial fibrillation (2) Chest pain Priority: Primary Status: Ruled-out Assessment and Plan: Stress test negative for ischemia. Qualifiers: Chest pain type: chest pain due to myocardial ischemia Ischemic chest pain type: stable angina pectoris Qualified Code(s): I20.8 - Other forms of angina pectoris (3) CHF (congestive heart failure) Priority: Secondary Status: Chronic Qualifiers: Heart failure type: diastolic Heart failure chronicity: chronic Qualified Code(s): I50.32 - Chronic diastolic (congestive) heart failure (4) Anemia Priority: Secondary Status: Chronic Qualifiers: Anemia type: iron deficiency Iron deficiency anemia type: other iron deficiency Qualified Code(s): D50.8 - Other iron deficiency anemias (5) Morbid obesity with BMI of 45.0-49.9, adult Priority: Secondary Status: Chronic Hospital course: Ms. Chaparro is a 77 year old female with hx chronic a fib presented to ED with chest heaviness and L shoulder pain. She was subsequently placed in observation. Ms Chaparro was placed in observation for chest discomfort. Her echo was negative. She required a 2 day stress test which was negative for ischemia. Her heart rate was controlled and her INR was therapeutic. She has no further symptoms. Today she is afebrile and feels at baseline. She is ready for discharge home. Discharge discussed with: patient, family - Time Spent with Patient Total time spent providing and/or coordinating discharge services: 34min - Discharge Medications Prescriptions: New Patient Taking Own Medication 1 each PO DAILY each Cyanocobalamin (B-12) [Vitamin B12] 1,000 mcg PO DAILY tablet Aspirin 81 mg PO DAILY tab.chew Continued Bumetanide [Bumex] 1 mg PO DAILY Allopurinol [Zyloprim] 300 mg PO DAILY Ascorbic Acid [Vitamin C] 500 mg PO DAILY Carvedilol 3.125 mg PO BID Cholecalciferol (Vitamin D3) [Vitamin D3] 1,000 units PO DAILY Ferrous Sulfate [Iron] 325 mg PO DAILY Multivit-Min/Iron/Folic/Lutein [Multivitamin Women 50 Plus Tab] 1 tab PO DAILY Potassium 99 mg PO BID Ubidecarenone/Vit E Acetate [Co Q-10 100 mg Softgel] 100 mg PO DAILY Warfarin [Coumadin] 7.5 mg PO 1800 Home Medications: Warfarin [Coumadin] 7.5 mg PO 1800 11/27/15 [History] Allopurinol [Zyloprim] 300 mg PO DAILY 02/07/16 [History] Bumetanide [Bumex] 1 mg PO DAILY 02/07/16 [History] Ascorbic Acid [Vitamin C] 500 mg PO DAILY 08/28/18 [History] Carvedilol 3.125 mg PO BID 08/28/18 [History] Cholecalciferol (Vitamin D3) [Vitamin D3] 1,000 units PO DAILY 08/28/18 [History] Ferrous Sulfate [Iron] 325 mg PO DAILY 08/28/18 [History] Multivit-Min/Iron/Folic/Lutein [Multivitamin Women 50 Plus Tab] 1 tab PO DAILY 08/28/18 [History] Potassium 99 mg PO BID 08/28/18 [History] Ubidecarenone/Vit E Acetate [Co Q-10 100 mg Softgel] 100 mg PO DAILY 08/28/18 [History] Aspirin 81 mg PO DAILY tab.chew 08/29/18 [Rx] Cyanocobalamin (B-12) [Vitamin B12] 1,000 mcg PO DAILY tablet 08/29/18 [Rx] Patient Taking Own Medication 1 each PO DAILY each 08/29/18 [Rx] Allergies/Adverse Reactions: Allergy/AdvReac Type Severity Reaction Status Date / Time No Known Allergies Allergy Verified 08/28/18 18:47 Date of admission: 08/27/18 13:22 Primary care physician: Apollo Murphy DO Discharging clinician: Pranav Bui Anticipated date of discharge: 08/29/18 - Constitutional Vitals: Temp Pulse Resp BP Pulse Ox 97.7 F 61 18 114/73 95 08/29/18 11:03 08/29/18 11:03 08/29/18 11:03 08/29/18 11:03 08/29/18 11:03 General appearance: Present: A&O X 3 Exam: See below - Head Head exam: Present: normocephalic - Eye Eye exam: Present: conjuntiva pink - ENT ENT exam: Present: mucous membranes moist - Neck Neck exam general surgery: Present: normal inspection. Absent: thyromegaly - Respiratory Respiratory exam: Present: CTAB. Absent: rales, rhonchi, wheezes - Cardiovascular Cardiovascular exam: Present: irregular rhythm. Absent: tachycardia - GI/Abdominal GI/Abdominal exam: Present: soft. Absent: tenderness - Extremities Exam Extremities exam: Present: warm. Absent: tenderness - Neurological Exam Neurological exam: Present: alert, oriented X3 - Skin Skin exam: Present: dry, warm. Absent: rash - Patient Status Disposition: Home, Self-Care Condition: Good Functional capacity at discharge: independent ambulation Overall status at discharge: patient is progressing back to baseline - Discharge Instructions Instructions: Chest Pain (DC) Follow Up With: Apollo Murphy DO [Primary Care Provider] - (Appointment cannot be made due to office being closed. Please call and make an appointment with in 2 weeks of discharge. ) Additional Instructions: Follow-up appointments: If there is not an appointment listed below, please call your physician and sche dule a follow-up appointment. If you have congestive heart failure and your symptoms return, make an appointment with your physician. Medication List: Carry an up to date list of medications you are taking at all time. We have given you an updated medication list including any new medications that you have been prescribed. Please provide that list to your primary provider Symptoms: If your condition changes or you experience any of the following symptoms, notify your physician immediately: Unusual or worsening pain, fever, persistent nausea and vomiting, bleeding, increase in swelling (especially in your legs), sudden weight gain, extreme dizziness, chest pain, increased drainage or redness from a wound or incision. Go to the emergency department if you experience a problem with breathing. Weights: If you have a history of swelling or shortness of breath, weigh yourself daily and notify your physician if you have a weight gain of two or more pounds in one day or 5 or more pounds in a week. If you experience any of the warning signs for stroke: Sudden numbness or weakness of the face, arm or leg; especially on one side of the body, sudden confusion, trouble speaking or understanding, sudden trouble seeing in one or both eyes, sudden trouble walking, dizziness, loss of balance or coordination, sudden sever headache with no cause; Call 911 or go to the emergency room. Stroke is a medical emergency. Some risk factors for stroke: Age, cigarette smoking, diabetes, excessive alcohol consumption, family history, high blood pressure, overweight, physical inactivity, prior stroke, heart attack, diagnosis of carotid artery stenosis or other artery disease. If you smoke, STOP: Smoking or tobacco use significantly increases your risk of heart and lung disease. Your chance of disease greatly increases if you continue to smoke. For more information, call the [place] tobacco quit line for smoking cessation 6-386-MKFS-NOW ( ) - Diet and Activity Activity: resume usual activities as tolerated Diet: advance to your usual diet
[2018-08-29] MEDS ORDERED: *HR* Warfarin 7.5 MG TABLET PO ONE (18:00)
== END 2018-08-29 12:21 | disposition home or self-care (01) ==
LOC: EMEROOARM 11:39 → 3BNU 11:39 → SUATTDRO 13:22 → 3BNU 13:50
PROVIDERS: ADMIT Internal Medicine Nephrology; ATTEND Internal Medicine

== ENCOUNTER 2019-10-18 06:24 | Inpatient (IN) ==
[2019-10-18] MEDS ORDERED: 0.9 % Sodium Chloride 1,000 ML ONE (06:49)
[2019-10-18] MEDS ORDERED: Ondansetron 4 MG/2 ML VIAL IVP ONE (06:55)
[2019-10-18] MEDS ORDERED: Ringers Solution, Lactated 1,000 ML IVC SCH (07:00)
[2019-10-18 07:17] LABS: INR 2.3; Prothrombin Time 25.8 Seconds (9.4-12.1)
[2019-10-18] MEDS ORDERED: Perflutren Lipid Microsphere 1.3 ML in 0.9 % Sodium Chloride 8.7 ML IVP PRN (10:55)
[2019-10-18] MEDS: 0.9 % Sodium Chloride 1,000 ML IVC SCH (12:33)
[2019-10-18] MEDS ORDERED: Morphine Sulfate 2 MG/ML SYRINGE IVP ONE (13:17)
[2019-10-18] MEDS: carvediloL 6.25 MG TABLET PO SCH (17:26)
[2019-10-18] MEDS ORDERED: *HR* Warfarin 7.5 MG TABLET PO SCH (18:00)
[2019-10-18] MEDS ORDERED: NON-FORMULARY MEDICATION 1 EACH EACH (Fish Oil/Dha/Epa [Fish Oil 1,200 Mg Fish Oil] 1 EACH PO SCH (21:00)
[2019-10-18] MEDS ORDERED: NON-FORMULARY MEDICATION 1 EACH EACH (Potassium 99 MG) PO SCH (21:00)
[2019-10-19 06:10] LABS: Basophils % 0.2 %; Eosinophils % 0.1 %; Hematocrit 33.2 % (35.3-44.9); Hemoglobin 10.6 g/dL (11.5-15.4); Immature Granulocytes % 0.4 % (0-4); Lymphocytes # 1.1 K/mcL (0.6-4.6); Lymphocytes % 13.3 %; Mean Corpuscular HGB Conc 31.9 g/dL (31.6-35.5); Mean Corpuscular Volume 100.3 fL (83.0-100.0); Mean Platelet Volume 9.8 fL (9.4-12.4); Monocytes # 0.8 K/mcL (0.0-1.3); Monocytes % 9.5 %; Neutrophils # 6.4 K/mcL (1.6-8.9); Platelet Count 150 K/mcL (140-400); Red Blood Count 3.31 M/mcL (3.82-4.97); Red Cell Distribution Width 16.9 % (11.5-14.5); Segmented Neutrophils % 76.5 %
[2019-10-19 06:11] LABS: White Blood Count 8.3 K/mcL (4.3-11.1)
[2019-10-19 06:12] LABS: INR 3.1; Prothrombin Time 35.2 Seconds (9.4-12.1)
[2019-10-19 06:27] LABS: BUN/Creatinine Ratio 40 (6-26); Blood Urea Nitrogen 36 mg/dL (8-23); Calcium 8.8 mg/dL (8.6-10.3); Carbon Dioxide 25 mEq/L (23-29); Chloride 108 mEq/L (98-107); Glucose 115 mg/dL (70-105); Osmolality,Calculated 297 (280-300); Potassium 4.2 mEq/L (3.5-5.1); Sodium 139 mEq/L (136-145); eGFR For African Americans > 60 (> 60); eGFR For Non-African Americans > 60 (> 60)
[2019-10-19] MEDS: Bumetanide 1 MG TABLET PO SCH ×2 (07:44→08:02)
[2019-10-19] MEDS: carvediloL 6.25 MG TABLET PO SCH (07:45)
[2019-10-19] MEDS: 0.9 % Sodium Chloride 1,000 ML IVC SCH (07:47)
[2019-10-19] MEDS ORDERED: Cholecalciferol (D-3) 1,000 UNIT (25MCG) TABLET PO SCH (09:00)
[2019-10-19] MEDS ORDERED: Ascorbic Acid 500 MG TABLET PO SCH (09:00)
[2019-10-19] MEDS ORDERED: NON-FORMULARY MEDICATION 1 EACH EACH (Ubidecarenone/Vit E Acetate [Co Q-10 100 Mg Softgel] PO SCH (09:00)
[2019-10-19] MEDS ORDERED: Multivit/Ca/Min/Fe/FA 1 TAB TABLET PO SCH (09:00)
[2019-10-19] MEDS ORDERED: Cyanocobalamin (B-12) 1,000 MCG TABLET PO SCH (09:00)
[2019-10-19] MEDS ORDERED: Magnesium Oxide 400 MG TABLET PO SCH (09:00)
[2019-10-19] MEDS ORDERED: Aspirin 81 MG TAB.CHEW PO SCH (09:00)
[2019-10-19 11:36] VITALS: BP 106/54
== END 2019-10-19 13:25 | disposition home or self-care (01) | DRG 274 ==
LOC: 2NNU 06:24
PROVIDERS: ADMIT Internal Medicine Cardiovascular Disease; ATTEND Internal Medicine Cardiovascular Disease

== ENCOUNTER 2019-10-21 17:40 | Inpatient (IN) ==
[2019-10-21] MEDS ORDERED: Naloxone 0.4 MG/ML INJ IVP PRN (20:07)
[2019-10-21 20:10] LABS: Adenovirus Not Detected (Not Detect); Coronavirus 229E Not Detected (Not Detect); Coronavirus HKU1 Not Detected (Not Detect)
[2019-10-21 20:11] LABS: Bordetella Pertussis Not Detected (Not Detect); Chlamydophila pneumoniae Not Detected (Not Detect); Coronavirus NL63 Not Detected (Not Detect); Coronavirus OC43 Not Detected (Not Detect); Human Metapneumovirus Not Detected (Not Detect); Human Rhinovirus/Enterovirus Not Detected (Not Detect); Influenza A Subtype 2009 H1 Not Detected (Not Detect); Influenza B Not Detected (Not Detect); Mycoplasma pneumoniae Not Detected (Not Detect); Parainfluenza Virus 1 Not Detected (Not Detect); Parainfluenza Virus 2 Not Detected (Not Detect); Parainfluenza Virus 3 Not Detected (Not Detect); Parainfluenza Virus 4 Not Detected (Not Detect); Respiratory Syncytial Virus Not Detected (Not Detect)
[2019-10-21] MEDS ORDERED: Furosemide 40 MG/4 ML VIAL IVP SCH (21:30)
[2019-10-22] MEDS: (Potassium 99 MG) PO SCH ×3 (02:14→21:19)
[2019-10-22 04:43] LABS: Basophils % 0.6 %; Eosinophils # 0.2 K/mcL (0.0-0.6); Eosinophils % 3.1 %; Hematocrit 30.2 % (35.3-44.9); Hemoglobin 9.7 g/dL (11.5-15.4); Immature Granulocytes % 0.2 % (0-4); Lymphocytes # 1.2 K/mcL (0.6-4.6); Lymphocytes % 25.2 %; Mean Corpuscular HGB Conc 32.1 g/dL (31.6-35.5); Mean Corpuscular Volume 99.7 fL (83.0-100.0); Mean Platelet Volume 10.7 fL (9.4-12.4); Monocytes # 0.7 K/mcL (0.0-1.3); Monocytes % 13.4 %; Neutrophils # 2.8 K/mcL (1.6-8.9); Platelet Count 144 K/mcL (140-400); Red Blood Count 3.03 M/mcL (3.82-4.97); Red Cell Distribution Width 16.9 % (11.5-14.5); Segmented Neutrophils % 57.5 %; White Blood Count 4.8 K/mcL (4.3-11.1)
[2019-10-22 04:51] LABS: INR 2.2
[2019-10-22 04:53] LABS: Activated Partial Thrombo Time 39.5 Seconds (26.0-36.0)
[2019-10-22 05:01] LABS: Alanine Aminotransferase 10 Units/L (7-52); Albumin 3.2 g/dL (3.5-5.7); Albumin/Globulin Ratio 0.9 (1.1-2.2); Alkaline Phosphatase 47 Units/L (34-104); Aspartate Amino Transferase 21 Units/L (13-39); BUN/Creatinine Ratio 32 (6-26); Bilirubin,Total 1.2 mg/dL (0.3-1.0); Blood Urea Nitrogen 25 mg/dL (8-23); Calcium 8.6 mg/dL (8.6-10.3); Carbon Dioxide 28 mEq/L (23-29); Chloride 103 mEq/L (98-107); Chol/HDL Ratio 5.7 (0-4.9); Cholesterol 120 mg/dL (< 200); Globulin 3.7 g/dL (2.4-3.5); Glucose 82 mg/dL (70-105); HDL Cholesterol 21 mg/dL (40-59); LDL Cholesterol,Calculated 80 mg/dL (< 100); Osmolality,Calculated 289 (280-300); Potassium 3.5 mEq/L (3.5-5.1); Sodium 138 mEq/L (136-145); Total Protein 6.9 g/dL (6.4-8.9); Triglycerides 95 mg/dL (< 150); eGFR For African Americans > 60 (> 60); eGFR For Non-African Americans > 60 (> 60)
[2019-10-22 05:03] LABS: Troponin I 0.05 ng/mL (< 0.04)
[2019-10-22] MEDS ORDERED: Albumin Human 5% 12.5 GM/250 ML IV.SOLN IVPB ONE (08:05)
[2019-10-22] MEDS ORDERED: NON-FORMULARY MEDICATION 1 EACH EACH (Potassium 99 MG) PO SCH (09:00)
[2019-10-22] MEDS: FISH OIL PO SCH (09:06)
[2019-10-22] MEDS: Cyanocobalamin (B-12) 1,000 MCG TABLET PO SCH (09:06)
[2019-10-22] MEDS: Ascorbic Acid 500 MG TABLET PO SCH (09:06)
[2019-10-22] MEDS: Spironolactone 25 MG TABLET PO SCH (09:06)
[2019-10-22] MEDS: Cholecalciferol (D-3) 1,000 UNIT (25MCG) TABLET PO SCH (09:06)
[2019-10-22] MEDS: Magnesium Oxide 400 MG TABLET PO SCH (09:06)
[2019-10-22] MEDS: Aspirin 81 MG TAB.CHEW PO SCH (09:06)
[2019-10-22] MEDS ORDERED: Regadenoson 0.4 MG/5 ML SYRINGE IVP ONE (09:11)
[2019-10-22] MEDS: carvediloL 6.25 MG TABLET PO SCH ×2 (12:00→19:56)
[2019-10-22] MEDS: Furosemide 40 MG/4 ML VIAL IVP SCH (17:15)
[2019-10-22] MEDS ORDERED: Warfarin perPT PO PRN (18:00)
[2019-10-22] MEDS ORDERED: *HR* Warfarin 7.5 MG TABLET PO ONE (18:00)
[2019-10-22] MEDS ORDERED: polyethylene glycoL 3350 17 GM POWD.PACK PO PRN (19:51)
[2019-10-22] MEDS ORDERED: Potassium Chloride Elixir 20 MEQ/15 ML UDC GTUBE SCH (20:00)
[2019-10-22] MEDS: Potassium Chloride Elixir 20 MEQ/15 ML UDC PO SCH (21:15)
[2019-10-23 02:12] LABS: INR 1.9; Prothrombin Time 21.9 Seconds (9.4-12.1)
[2019-10-23 02:15] LABS: Basophils % 0.4 %; Eosinophils # 0.2 K/mcL (0.0-0.6); Hematocrit 29.5 % (35.3-44.9); Hemoglobin 9.5 g/dL (11.5-15.4); Immature Granulocytes % 0.2 % (0-4); Lymphocytes # 1.2 K/mcL (0.6-4.6); Lymphocytes % 23.9 %; Mean Corpuscular HGB Conc 32.2 g/dL (31.6-35.5); Mean Corpuscular Hemoglobin 32.2 pg (28.0-33.3); Mean Platelet Volume 10.6 fL (9.4-12.4); Monocytes # 0.7 K/mcL (0.0-1.3); Monocytes % 13.9 %; Neutrophils # 2.9 K/mcL (1.6-8.9); Platelet Count 150 K/mcL (140-400); Red Blood Count 2.95 M/mcL (3.82-4.97); Red Cell Distribution Width 16.9 % (11.5-14.5); Segmented Neutrophils % 57.6 %
[2019-10-23 02:27] LABS: % Iron Saturation 15 % (15-50); BUN/Creatinine Ratio 28 (6-26); Blood Urea Nitrogen 28 mg/dL (8-23); Calcium 8.7 mg/dL (8.6-10.3); Carbon Dioxide 28 mEq/L (23-29); Chloride 103 mEq/L (98-107); Glucose 95 mg/dL (70-105); Iron 37 mcg/dL (50-170); Magnesium 1.9 mg/dL (1.6-2.6); Osmolality,Calculated 291 (280-300); Potassium 3.7 mEq/L (3.5-5.1); Sodium 138 mEq/L (136-145); Transferrin 177 mg/dL (203-362); eGFR For African Americans > 60 (> 60); eGFR For Non-African Americans 54 (> 60)
[2019-10-23 02:41] LABS: Hepatitis B Surface Antigen Nonreactive (Nonreactive)
[2019-10-23 02:43] LABS: Ferritin 88 ng/mL (10-120)
[2019-10-23 02:49] LABS: Folate 12.1 ng/mL (3.0-16.0)
[2019-10-23 03:08] LABS: Vitamin B12 > 1500 pg/mL (250-1100)
[2019-10-23 03:10] LABS: Hepatitis C Virus Antibody Nonreactive (Nonreactive)
[2019-10-23 08:32] VITALS: BP 149/64
[2019-10-23] MEDS: FISH OIL PO SCH (09:15)
[2019-10-23] MEDS: (Potassium 99 MG) PO SCH (09:15)
[2019-10-23] MEDS: Cholecalciferol (D-3) 1,000 UNIT (25MCG) TABLET PO SCH (09:18)
[2019-10-23] MEDS: Aspirin 81 MG TAB.CHEW PO SCH (09:18)
[2019-10-23] MEDS: carvediloL 6.25 MG TABLET PO SCH (09:18)
[2019-10-23] MEDS: Magnesium Oxide 400 MG TABLET PO SCH (09:19)
[2019-10-23] MEDS: Furosemide 40 MG/4 ML VIAL IVP SCH (09:19)
[2019-10-23] MEDS: Ascorbic Acid 500 MG TABLET PO SCH (09:19)
[2019-10-23] MEDS: Cyanocobalamin (B-12) 1,000 MCG TABLET PO SCH (09:19)
[2019-10-23] MEDS: Potassium Chloride Elixir 20 MEQ/15 ML UDC PO SCH (09:19)
[2019-10-23] MEDS: Spironolactone 25 MG TABLET PO SCH (09:19)
[2019-10-23] MEDS ORDERED: *HR* Warfarin 7.5 MG TABLET PO ONE (18:00)
== END 2019-10-23 11:28 | disposition home or self-care (01) | DRG 292 ==
LOC: CDU → SUATTDRO 18:45 → 3BNU 20:10
PROVIDERS: ADMIT Student in an Organized Health Care Education/Training Program; ATTEND Pharmacist